=== PATIENT | male | born 1990 | race Caucasian/White ===

== ENCOUNTER 2017-06-08 07:49 | Emergency (ER) | payer OTHER ==
[2017-06-08 07:56] VITALS: BP 115/64; PULSE 78; TEMP 98.4; BMI 26.6
--- NOTE | 2017-06-08 08:23 | PDOC ---
Suture Removal/Wound Check HPI - History of Present Illness Chief Complaint: Suture/Staple Removal (other) Stated Complaint: DARIUS REMOVAL Time Seen by Provider: 06/08/17 08:16 History Source: Yes: Patient Exam Limitations: Yes: No Limitations Treated at: Other ED (May 27, 2017, [facility]) - Previous ED Treatment Type of procedure performed on last visit: Yes: Laceration Repair Tetanus Immunization: Yes: Up to Date Antibiotics Prescribed: No Past History - Past Medical History Allergies/Adverse Reactions: Allergies No Known Allergies Allergy (Verified 06/08/17 07:56) Home Medications: Ambulatory Orders NK [No Known Home Medication] 06/08/17 General: Yes: diabetes Surgical History: Yes: No Surgical History - Social History Smoking Status: Never smoked Suture Removal/Wound Check PE - Physical Exam Laceration/Wound Check Symptoms: reports: None Current Severity Level: None Maximum Severity Level: None Pain Localization: None Medical Decision Making - Medical Decision Making 06/08/17 08:21 3 herman removed from the parietal area without difficulty. NO redness, swelling or infection noted. *DC/Admit/Observation/Transfer Diagnosis at time of Disposition: Removal of herman - Discharge Dispostion Disposition: HOME Condition at time of disposition: Good Admit: No - Referrals Referrals: Sherine Russo MD [Primary Care Provider] - - Patient Instructions Printed Discharge Instructions: DI for Suture Removal Additional Instructions: Please keep area clean and dry Follow up as needed Do not rub or scratch area.
== END 2017-06-08 08:37 | disposition home or self-care (01) ==
LOC: JERFT 07:49
DX: Z48.02 Encounter for removal of sutures (principal)
CPT/HCPCS: 99281-25

== ENCOUNTER 2025-06-23 12:24 | Emergency (ER) | payer OTHER ==
[2025-06-23 12:30] VITALS: BP 126/68; PULSE 99; RESP 18; TEMP 98.6; BMI 26.6
[2025-06-23 13:27] LABS: ABSOLUTE IMMATURE GRANULOCYTES 0.04 x10^3/uL (0.0-0.031); BASOPHILS # 0.08 x10^3/uL (0.01-0.08); EOSINOPHIL % 2.3 % (0.8-7.0); EOSINOPHILS # 0.18 x10^3/uL (0.04-0.54); MCHC 33.3 g/dl (32.3-36.5); MEAN CELL VOLUME 83.8 fl (79.0-92.2); MEAN PLT VOLUME 10.5 fl (9.4-12.4); MONOCYTE # 0.80 x10^3/uL (0.30-0.82); MONOCYTE % 10.0 % (5.3-12.2); RDW 12.0 % (12.0-15.6)
== END 2025-06-23 14:47 | disposition home or self-care (01) ==
LOC: JER 12:24 → JERFT 12:24
DX: R04.0 Epistaxis (principal)
CPT/HCPCS: 36415; 85025; 99283-25